=== PATIENT | male | born 1990 | race Caucasian/White ===

== ENCOUNTER 2024-04-23 20:46 | Emergency (ER) | payer MEDICARE, SELFPAY ==
[2024-04-23 20:56] VITALS: BP 116/76
--- NOTE | 2024-04-23 23:32 | ED.MUSCINJ ---
HPI-Injury
<Danielle Girard NP - Last Filed: 04/26/24 19:12>
General
Chief Complaint: Head Injury
Source: patient
Exam Limitations: none
Time Seen by Provider: 04/23/24 22:05
Nursing documentation reviewed up to this point in time: agreed with
History of Present Illness-Injury
Is this injury a work related problem?: No
Is pt an associate of [facility] [place]?: No
Initial Injury comments:
Patient states he fell playing basketball with friends. Hit back of head on pavement. NO LOC. Has lac and large hematoma to posterior scalp. Complains of pain to low back and buttocks. Brought to ED by mother for opal.
Past History
<Danielle Girard [employer] - Last Filed: 04/26/24 19:12>
Past History
ED Past Medical History: Asthma and Seizures
ED Past Surgical History: None
Social History
Tobacco: Non-smoker
Alcohol: None
Personal: Single
Living: with family
Family History
Family History: Other (Noncontributory)
Review of Systems
<Danielle Girard NP - Last Filed: 04/26/24 19:12>
Review of Systems
Allergies reviewed?: Yes
All Other Systems: ROS reviewed and negative except as documented in HPI and ROS
Constitutional: Reports no symptoms
EENT: Reports no symptoms
Respiratory: Reports no symptoms
Cardiac: Reports no symptoms
ABD/GI: Reports no symptoms
Musculoskeletal: Reports back pain (low back and buttock pain)
Skin: Reports other (laceration to posterior scalp)
Neurological: Reports no symptoms
Psychiatric: Reports no symptoms
Musculoskeletal Injury Exam
<Danielle Girard NP - Last Filed: 04/26/24 19:12>
Musculoskeletal Injury Exam
Bilateral Lower Back:
Pain with Movement?: Moderate
Tender to palpation?: Moderate
Soft tissue swelling?: None
External deformity and angulation?: None
Joint effusion?: None
Contusion?: Moderate
Hematoma-local bleeding into tissue?: None
Strain- Sprain- Tear (Connective tissue injury)?: Moderate
Crepitus with movement?: No
Joint instability?: No
Malalignment/deformity?: No
Range of motion: Full
Distal skin color and temperature: normal-warm & good color
Capillary Refill: normal
Normal distal neurovascular exam?: Yes
Bilateral Buttock:
Pain with Movement?: Moderate
Tender to palpation?: Moderate
Soft tissue swelling?: None
External deformity and angulation?: None
Joint effusion?: None
Contusion?: Moderate
Hematoma-local bleeding into tissue?: None
Strain- Sprain- Tear (Connective tissue injury)?: None
Crepitus with movement?: No
Joint instability?: No
Malalignment/deformity?: No
Distal skin color and temperature: normal-warm & good color
Capillary Refill: normal
Normal distal neurovascular exam?: Yes
Skin Exam
<Danielle Girard NP - Last Filed: 04/26/24 19:12>
Laceration
Posterior Scalp:
Length in cm: 2
Orientation: horizontal
Type of Laceration: simple
Any active bleeding?: no active bleeding
Distal skin color and temperature: normal-warm & good color
Normal distal neurovascular exam: Yes
Range of motion: full
Phy Exam
<Danielle Girard NP - Last Filed: 04/26/24 19:12>
General Physical Exam
General Presentation: well appearing and no apparent distress
General age: appears stated age
General Skin: warm and dry
General Habitus: normal
General Mental: alert
General Hydration: appears well hydrated
ENT Exam
ENT Exam: neck supple and normocephalic
Eye Exam
Eye Exam: PERRL, EOMI, conjunctiva normal and globe normal
Neurological Exam
Neurological Exam: alert, oriented x3, CN II-XII intact, no motor deficits, no sensory deficits, speech normal and normal gait
Nilson Coma Scale
Eye Opening: Spontaneous
Verbal Response: Oriented
Motor Response: Obeys Commands
GCS Total Score: 15
Musculoskeletal Exam
Musculoskeletal Exam: neuro vasc intact and other (FUll nonpainful ROM to head/neck, upper and lower extremities.)
Skin Exam
Skin Exam: normal color, warm/dry and other (large hematoma to posterior scalp)
Psychiatric Exam
Psychiatric Exam: normal mood/affect
<Kalen Tapia DO - Last Filed: 04/24/24 00:53>
[place] Coma Scale
GCS Total Score: 15
Injury Course
<Danielle Girard [employer] - Last Filed: 04/26/24 19:12>
Orders/Labs/Results
Orders:
Orders
04/23/24 22:11
Lumbar Spine Complete, 4 View [CR Lumbar Spine Comp Min 4 Vw*] Urgent
Comment:
Reason For Exam: fall
04/23/24 22:27
Pelvis, 1 or 2 Views CR [CR Pelvis - 1 Or 2 Views ] Urgent
Comment:
Reason For Exam: fall
04/24/24 00:01
CT Head W/o Iv Contrast Urgent
Reason For Exam: trauma
<Kalen Tapia DO - Last Filed: 04/24/24 00:53>
Orders/Labs/Results
Orders:
Orders
04/23/24 22:11
Lumbar Spine Complete, 4 View [CR Lumbar Spine Comp Min 4 Vw*] Urgent
Comment:
Reason For Exam: fall
04/23/24 22:27
Pelvis, 1 or 2 Views CR [CR Pelvis - 1 Or 2 Views ] Urgent
Comment:
Reason For Exam: fall
04/24/24 00:01
CT Head W/o Iv Contrast Urgent
Reason For Exam: trauma
Procedures
<Danielle Girard NP - Last Filed: 04/26/24 19:12>
Laceration Closure
Posterior Scalp:
Status of Wound: clean
Description of Wound Edges: sharp
Preparation: cleaned with saline and cleaned with Betadine
Anesthesia: 1% Lidocaine with epi
Revision/Debridement: routine- no revision
Wound exploration: explored to base- no FB
Type of Closure: single layer closure
Skin Closure Material: skin prashant
<Danielle Girard NP - Last Filed: 04/26/24 19:12>
*Radiology
Radiology exam reviewed: radiology read reviewed
*Pulse Oximetry
Patient hypoxic: no
*Critical Care Note
Total Time (30-74mins, 75-104mins- exclusive of procedures): Not Applicable
<Kalen Tapia DO - Last Filed: 04/24/24 00:53>
Update Note
Update Note:
CT head
IMPRESSION:
No acute intracranial findings.
Report electronically transmitted @12:41 AM EST
ED Attending Note
<Danielle Girard NP - Last Filed: 04/26/24 19:12>
-
Portions of this chart may have been created with voice recognition software.� Occasional wrong word or��sound alike� substitutions may have occurred due to the inherent limitations of voice recognition software.
Discharge Plan
Departure
Patient Disposition: Home (Routine Discharge)
Date of Disposition: 04/24/24
Time of Disposition: 00:53
Patient with high blood pressure during this ER visit?: No
Condition: Good
Covid-19: Not Applicable
Discharge Problem:
Head injury, Laceration of scalp, Low back pain
Instructions: Low back pain in adults, Head Injury in Adults (DC), Contusion (DC), Laceration Repair With Prashant (DC), Using Cold for Pain
Prescriptions:
No Action
albuterol sulfate 1 PUFF HFA aerosol inhaler
1 puff inhalation R [id number] PRN (Reason: asthma)
zonisamide [Zonegran] 100 MG capsule
200 mg PO DIRECTED
Patient Comments:
200mg morning and 300mg at night BID
lamotrigine [Lamictal] 200 MG tablet
200 mg PO BID
Referrals:
Binta Schroeder CRNP [Family Provider] -
Stand Alone Forms: Return to Work
Activity Restrictions/Additional Instructions:
Prashant can be removed in 7-10 days by your family doctor.
Interventions
Interventions:
*Risk Screen - Suicide Last Done: 04/23/24 20:56
*General Assessment Last Done: 04/23/24 22:06
*Neglect/Abuse Screening Last Done: 04/23/24 20:56
ED- Fall Risk Assessment Last Done: 04/23/24 22:05
*ED COVID-19 Vaccine History Last Done: 04/23/24 22:06
*Nursing Disposition Last Done: 04/24/24 01:27
ED-Musculoskeletal Assessment Last Done: 04/23/24 22:05
ED- Neurological Assessment Last Done: 04/23/24 22:05
ED-Skin Assessment Last Done: 04/23/24 22:05
Discharge Date and Time
Discharge Date/Time: 04/24/24 01:34
Print Language: ITALIAN
[2024-04-24 01:28] VITALS: BP 115/72
== END 2024-04-24 01:34 | disposition home or self-care (01) ==
LOC: EMR 20:46
PROVIDERS: EMERGENCY PHYSICIAN Emergency Medicine; FAMILY PHYSICIAN Registered Nurse
DX: S09.90XA Unspecified injury of head, initial encounter (principal); S01.01XA Laceration without foreign body of scalp, initial encounter; M54.50 Low back pain, unspecified; Y93.67 Activity, basketball; J45.909 Unspecified asthma, uncomplicated; G40.909 Epilepsy, unspecified, not intractable, without status epilepticus
CPT/HCPCS: 99284; 12001; 70450; 72110; 72170